=== PATIENT | female | born 1950 | race Caucasian/White ===

== ENCOUNTER 2019-04-15 12:24 | Day surgery (SDC) | payer BC, MEDICARE ==
[2019-04-15 12:45] VITALS: O2SAT 98
[2019-04-15] MEDS: TROPICAMIDE 1% OPHTH SOL ONE ×3 (12:51→12:57)
[2019-04-15] MEDS: PHENYLEPHRINE HCL 10% OPHTHAL SOL ONE ×3 (12:51→12:57)
[2019-04-15] MEDS: CYCLOPENTOLATE 1% SOL ONE ×3 (12:51→12:57)
[2019-04-15] MEDS ORDERED: KETOROLAC/HOME 0.5% SOL RIGHTEYE ONE ×3 (12:52→12:58)
[2019-04-15] MEDS ORDERED: MOXIFLOXACIN-HOME SOL RIGHTEYE ONE ×2 (12:52→12:55)
[2019-04-15] MEDS: TETRACAINE HCL 0.5 % 1 DROP SOL ONE ×2 (12:58→14:04)
[2019-04-15] MEDS ORDERED: MIDAZOLAM 2 MG/2 ML SOL ONE (13:00)
[2019-04-15] MEDS ORDERED: FENTANYL 100MCG/2ML SOL ONE (13:00)
[2019-04-15] MEDS ORDERED: POVIDONE IODINE 5% SOL ONE (14:00)
[2019-04-15] MEDS: LIDOCAINE HCL 2% MPF 10 ML SOL ONE ×2 (14:06→14:09)
[2019-04-15] MEDS: BSS W/ 0.5 MG P.F. EPI 1 BOTTLE ONE ×2 (14:07→14:09)
[2019-04-15] MEDS ORDERED: ACETAZOLAMIDE 250 MG PO ONE (14:09)
[2019-04-15] MEDS ORDERED: ACETAZOLAMIDE 500 MG CER PO ONE (14:31)
== END 2019-04-15 14:42 | disposition home or self-care (01) | DRG 125 ==
LOC: SURG 12:24
PROVIDERS: ATTEND Ophthalmology
DX: H25.89 Other age-related cataract (principal); R73.03 Prediabetes
CPT/HCPCS: J2250; J3010; A9270-GY

== ENCOUNTER 2019-04-29 10:53 | Day surgery (SDC) | payer MEDICARE, OTHER ==
[2019-04-29] MEDS ORDERED: ACETAZOLAMIDE 250 MG PO ONE (11:11)
[2019-04-29] MEDS: MOXIFLOXACIN-HOME SOL LEFTEYE ONE ×2 (11:19→11:23)
[2019-04-29] MEDS: TROPICAMIDE 1% OPHTH SOL ONE ×3 (11:19→11:26)
[2019-04-29] MEDS: CYCLOPENTOLATE 1% SOL ONE ×3 (11:19→11:26)
[2019-04-29] MEDS: KETOROLAC/HOME 0.5% SOL LEFTEYE ONE ×3 (11:19→11:27)
[2019-04-29] MEDS: PHENYLEPHRINE HCL 10% OPHTHAL SOL ONE ×3 (11:19→11:26)
[2019-04-29] MEDS: TETRACAINE HCL 0.5 % OPHTH 1 DROP SOL ONE ×2 (11:27→12:34)
[2019-04-29] MEDS ORDERED: MIDAZOLAM 2 MG/2 ML SOL ONE (12:04)
[2019-04-29] MEDS ORDERED: FENTANYL 100MCG/2ML SOL ONE (12:05)
[2019-04-29] MEDS ORDERED: BSS W/ 0.5 MG P.F. EPI 1 BOTTLE ONE (12:28)
[2019-04-29] MEDS ORDERED: POVIDONE IODINE 5% SOL ONE (12:28)
[2019-04-29] MEDS ORDERED: LIDOCAINE HCL 2% MPF 10 ML SOL ONE (12:28)
[2019-04-29] MEDS ORDERED: ACETAZOLAMIDE 500 MG CER PO ONE (12:59)
[2019-04-29 13:02] VITALS: O2SAT 95
== END 2019-04-29 13:21 | disposition home or self-care (01) | DRG 125 ==
LOC: SURG 10:53
PROVIDERS: ATTEND Ophthalmology
DX: H25.89 Other age-related cataract (principal); R73.03 Prediabetes
CPT/HCPCS: J2250; J3010; A9270-GY